=== PATIENT | female | born 1980 | race Caucasian/White ===

== ENCOUNTER 2016-11-25 14:31 | Inpatient (IN) | payer BC, MEDICAID ==
[~2016-11-25] VITALS: Ht 157.5 cm; Wt 94.5 kg
[~2016-11-25 14:31] MED LIST: COLACE 100100 MG/CAP PO; DOXYCYCLINE 10100 MG PO; MIRALAX238G PO; MOTRIN 600600 MG/TAB PO; PERCOCET 325 MG1 TA2 PO; PRENATABS RX1 TAB PO; PROFERRIN ES12 MG; VENTOLIN0.09 MG IH; XANAX 0.5MG0.5 MG PO
[2016-12-29] MEDS ORDERED: DICLEGIS (11:06)
[2017-01-03] VITALS (24 sets, daily range): BP systolic 116–156; BP diastolic 68–89; PULSE 90–109; TEMP 97.6–99.1
[2017-01-03] MEDS ORDERED: PEPCID 20MG TAB20 MG (14:47)
[2017-01-03 15:25] LABS: BASO % 0.2 % (0.0-2.0); EOS % 0.1 % (0-4.0); GRAN # 6.8 (1.4-6.5); GRAN % 72.9 % (42.2-75.2); LYMPH # 1.8 (1.2-3.4); LYMPH % 19.8 % (20.0-51.0); MEAN CELL VOLUME 87 fl (80.0-100.0); MEAN CORPUSCULAR HGB CONC 33 g/dl (33.0-37.0); MEAN PLATELET VOLUME 11.1 fl (7.4-10.4); MONO # 0.6 (0.1-0.6); MONO % 6.5 % (1.7-9.3); PLATELET COUNT 252 K/mm3 (130-400); RED BLOOD COUNT 3.94 M/mm3 (4.10-5.30); WHITE BLOOD COUNT 9.3 K/mm3 (4.8-10.8)
[2017-01-03 15:31] LABS: HEMATOCRIT 34.1 % (37.0-47.0); HEMOGLOBIN 11.4 g/dl (12.5-16.0); MEAN CORPUSCULAR HEMOGLOBIN 29 pg (27.0-31.0)
[2017-01-04] VITALS (9 sets, daily range): BP systolic 132–169; BP diastolic 71–89; PULSE 81–100; TEMP 97.7–98.5
[2017-01-04 01:49] LABS: COLLECTION METHOD CATHETER
[2017-01-04 01:59] LABS: MUCOUS Present /lpf; PH 5 (5-8); SQUAMOUS EPITHELIAL 0-2 /hpf; URINE APPEARANCE Clear; URINE BACTERIA None Seen /hpf; URINE BILIRUBIN Negative (NEGATIVE); URINE BLOOD 1+ (NEGATIVE); URINE COLOR Yellow; URINE GLUCOSE Negative (NEGATIVE); URINE KETONE 2+ (NEGATIVE); URINE LEUKOCYTE ESTERASE Negative (NEGATIVE); URINE PROTEIN(semi-quant) 1+ (NEGATIVE); URINE UROBILINOGEN Negative (NEGATIVE)
[2017-01-04 07:22] LABS: BASO % 0.3 % (0.0-2.0); EOS % 0.2 % (0-4.0); GRAN # 9.2 (1.4-6.5); GRAN % 80.5 % (42.2-75.2); LYMPH # 1.6 (1.2-3.4); LYMPH % 13.8 % (20.0-51.0); MEAN CELL VOLUME 88 fl (80.0-100.0); MEAN CORPUSCULAR HGB CONC 33 g/dl (33.0-37.0); MEAN PLATELET VOLUME 10.7 fl (7.4-10.4); MONO # 0.5 (0.1-0.6); MONO % 4.8 % (1.7-9.3); PLATELET COUNT 193 K/mm3 (130-400); RED BLOOD COUNT 3.19 M/mm3 (4.10-5.30); WHITE BLOOD COUNT 11.4 K/mm3 (4.8-10.8)
[2017-01-04 07:25] LABS: HEMATOCRIT 28.2 % (37.0-47.0); HEMOGLOBIN 9.2 g/dl (12.5-16.0); MEAN CORPUSCULAR HEMOGLOBIN 29 pg (27.0-31.0)
[2017-01-04 08:16] LABS: ADJUSTED CALCIUM 9.9 mg/dL (8.4-10.2); ALBUMIN 2.5 gm/dL (3.5-5.0); BILIRUBIN,TOTAL 0.4 mg/dL (0.0-1.0); CALCIUM 8.7 mg/dL (8.4-10.2); CREATININE, serum 0.79 mg/dL (0.52-1.25); TOTAL PROTEIN 5.3 gm/dL (6.4-8.2)
[2017-01-05 08:02] VITALS: BP 154/83; PULSE 94; TEMP 98.6
[2017-01-05] MEDS ORDERED: ADALAT CC60 MG PO (09:29)
[2017-01-05] MEDS ORDERED: IBU600 MG PO (09:29)
[2017-01-05] MEDS ORDERED: AMBIEN 5MG TABLE5 MG PO (09:31)
[2017-01-05] MEDS ORDERED: PERCOCET 325 MG1 TA2 PO (09:31)
[2017-01-05 12:03] VITALS: BP 137/88; PULSE 91
[2017-01-05 19:20] VITALS: BP 145/76; PULSE 86; TEMP 97.9
[2017-01-06] VITALS (8 sets, daily range): BP systolic 121–154; BP diastolic 68–82; PULSE 85–98; TEMP 97.8–98.3
[2017-01-07 07:15] VITALS: BP 147/86; PULSE 86; TEMP 98.6
[2017-01-07] MEDS ORDERED: LEXAPRO 5MG5 MG PO (09:14)
[2017-01-07] MEDS ORDERED: LEXAPRO 10MG10 MG PO (09:14)
[2017-01-07 10:43] LABS: BASO % 0.1 % (0.0-2.0); EOS % 0.1 % (0-4.0); GRAN # 7.7 (1.4-6.5); GRAN % 85.2 % (42.2-75.2); LYMPH % 11.3 % (20.0-51.0); MEAN CELL VOLUME 89 fl (80.0-100.0); MEAN CORPUSCULAR HGB CONC 33 g/dl (33.0-37.0); MEAN PLATELET VOLUME 10.4 fl (7.4-10.4); MONO # 0.3 (0.1-0.6); MONO % 2.9 % (1.7-9.3); PLATELET COUNT 355 K/mm3 (130-400); RED BLOOD COUNT 4.02 M/mm3 (4.10-5.30); WHITE BLOOD COUNT 9.1 K/mm3 (4.8-10.8)
[2017-01-07 10:44] LABS: HEMATOCRIT 35.7 % (37.0-47.0); HEMOGLOBIN 11.6 g/dl (12.5-16.0); MEAN CORPUSCULAR HEMOGLOBIN 29 pg (27.0-31.0)
[2017-01-07 10:59] LABS: ADJUSTED CALCIUM 9.4 mg/dL (8.4-10.2); ALBUMIN 3.6 gm/dL (3.5-5.0); BILIRUBIN,TOTAL 0.4 mg/dL (0.0-1.0); CALCIUM 9.1 mg/dL (8.4-10.2); CREATININE, serum 0.82 mg/dL (0.52-1.25); POTASSIUM 4.3 mmol/L (3.4-5.0)
[2017-01-07 11:05] VITALS: BP 150/85; PULSE 92; TEMP 98.4
[2017-01-07 11:34] LABS: COLLECTION METHOD CLEAN CATCH
[2017-01-07 11:44] LABS: MUCOUS Present /lpf; PH 6 (5-8); URINE APPEARANCE Clear; URINE BACTERIA None Seen /hpf; URINE BILIRUBIN Negative (NEGATIVE); URINE BLOOD 3+ (NEGATIVE); URINE COLOR Yellow; URINE GLUCOSE Negative (NEGATIVE); URINE KETONE 1+ (NEGATIVE); URINE LEUKOCYTE ESTERASE Negative (NEGATIVE); URINE PROTEIN(semi-quant) 2+ (NEGATIVE); URINE UROBILINOGEN Negative (NEGATIVE)
[2017-01-07 16:45] VITALS: BP 151/79; PULSE 88; TEMP 98.2
== END 2017-01-07 17:25 | disposition home or self-care (01) | DRG 766 ==
LOC: LDR 01-03 14:05 → OB 01-03 20:00 → LDR 01-15 14:31
PROVIDERS: Obstetrics & Gynecology
PROC: 10D00Z1 Extraction of Products of Conception, Low, Open Approach (ICD-10-PCS; principal; 2017-01-03)
DX: O11.4 Pre-existing hypertension with pre-eclampsia, complicating childbirth (principal); O10.92 Unspecified pre-existing hypertension complicating childbirth; O69.81X0 Labor and delivery complicated by cord around neck, without compression, not applicable or unspecified; O99.344 Other mental disorders complicating childbirth; F41.1 Generalized anxiety disorder; Z3A.38 38 weeks gestation of pregnancy; Z37.0 Single live birth
CPT/HCPCS: 90791-AI; J0360; J0690; J1885; J2250; J2270; J2370; J2405; J2590; J7120

== ENCOUNTER 2016-12-29 10:40 | Outpatient (CLI) | payer BC, MEDICAID ==
[2016-12-29] VITALS (10 sets, daily range): BP systolic 128–141; BP diastolic 70–91; PULSE 94–114; TEMP 98.5–98.9
[~2016-12-29] VITALS: Ht 157.5 cm; Wt 94.1 kg
[2016-12-29] MEDS ORDERED: DICLEGIS (11:06)
[2016-12-29 11:22] LABS: BASO % 0.3 % (0.0-2.0); EOS % 0.2 % (0-4.0); GRAN # 6.8 (1.4-6.5); GRAN % 74.1 % (42.2-75.2); LYMPH # 1.7 (1.2-3.4); LYMPH % 18.8 % (20.0-51.0); MEAN CELL VOLUME 88 fl (80.0-100.0); MEAN CORPUSCULAR HGB CONC 33 g/dl (33.0-37.0); MEAN PLATELET VOLUME 10.9 fl (7.4-10.4); MONO # 0.6 (0.1-0.6); MONO % 6.1 % (1.7-9.3); PLATELET COUNT 245 K/mm3 (130-400); RED BLOOD COUNT 3.85 M/mm3 (4.10-5.30); REDCELL DISTRIBUTION WIDTH-CV 13.8 % (11.5-14.5); WHITE BLOOD COUNT 9.2 K/mm3 (4.8-10.8)
[2016-12-29 11:23] LABS: HEMATOCRIT 33.9 % (37.0-47.0); HEMOGLOBIN 11.3 g/dl (12.5-16.0); MEAN CORPUSCULAR HEMOGLOBIN 29 pg (27.0-31.0)
[2016-12-29 11:31] LABS: PH 6 (5-8); URINE APPEARANCE Cloudy; URINE BACTERIA Rare /hpf; URINE BILIRUBIN Negative (NEGATIVE); URINE BLOOD Negative (NEGATIVE); URINE COLOR Yellow; URINE GLUCOSE Negative (NEGATIVE); URINE KETONE Negative (NEGATIVE); URINE RBC 0-2 /hpf; URINE UROBILINOGEN Negative (NEGATIVE)
[2016-12-29 11:32] LABS: ADJUSTED CALCIUM 9.6 mg/dL (8.4-10.2); ALBUMIN 3.5 gm/dL (3.5-5.0); BILIRUBIN,TOTAL 0.4 mg/dL (0.0-1.0); CALCIUM 9.2 mg/dL (8.4-10.2); CREATININE, serum 0.78 mg/dL (0.52-1.25); POTASSIUM 4.3 mmol/L (3.4-5.0); TOTAL PROTEIN 6.8 gm/dL (6.4-8.2)
== END 2016-12-29 13:50 | disposition home or self-care (01) ==
LOC: LDRO 10:40 → LDR 10:45 → LDRO 13:50
PROVIDERS: Obstetrics & Gynecology
DX: O99.413 Diseases of the circulatory system complicating pregnancy, third trimester (principal); R03.0 Elevated blood-pressure reading, without diagnosis of hypertension; Z3A.37 37 weeks gestation of pregnancy
CPT/HCPCS: OP

== ENCOUNTER → 2019-06-01 | Outpatient (CLI) | payer OTHER ==
[~2019-06-01] MED LIST changes: +ADALAT CC60 MG PO; +AMBIEN 5MG TABLE5 MG PO; +DICLEGIS; +IBU600 MG PO; +LEXAPRO 10MG10 MG PO; +LEXAPRO 5MG5 MG PO; +PEPCID 20MG TAB20 MG
== END ==
LOC: COL.RAD 13:42
DX: M50.223 Other cervical disc displacement at C6-C7 level (principal); M48.02 Spinal stenosis, cervical region; M25.78 Osteophyte, vertebrae

== ENCOUNTER → 2019-08-15 | Outpatient (CLI) | payer OTHER | LOC: MHCPAIN 11:00 | DX: M47.812 Spondylosis without myelopathy or radiculopathy, cervical region (principal); M54.2 Cervicalgia; G89.29 Other chronic pain | CPT/HCPCS: G0463 ==

== ENCOUNTER → 2020-02-20 | Outpatient (CLI) | payer OTHER | LOC: MC.RAD 11:20 | DX: Z12.31 Encounter for screening mammogram for malignant neoplasm of breast (principal) ==

== ENCOUNTER → 2020-02-25 | Outpatient (CLI) | payer OTHER | LOC: MC.RAD 08:15 | DX: N63.10 Unspecified lump in the right breast, unspecified quadrant (principal) ==

== ENCOUNTER 2020-05-04 03:25 | Emergency (ER) | payer OTHER ==
[~2020-05-04] VITALS: Ht 157.5 cm; Wt 75.9 kg
[2020-05-04 03:28] VITALS: TEMP 97.7
[2020-05-04 03:45] VITALS: BP 110/70; PULSE 78
== END 2020-05-04 03:45 | disposition home or self-care (01) ==
LOC: COL.ER 03:25
DX: O26.893 Other specified pregnancy related conditions, third trimester (principal); M54.2 Cervicalgia; O16.3 Unspecified maternal hypertension, third trimester; O99.513 Diseases of the respiratory system complicating pregnancy, third trimester; J18.9 Pneumonia, unspecified organism; O00.90 Unspecified ectopic pregnancy without intrauterine pregnancy; Z3A.00 Weeks of gestation of pregnancy not specified
CPT/HCPCS: J1100; J1885; J2360

== ENCOUNTER → 2020-05-06 | Outpatient (CLI) | payer OTHER | LOC: MHCPAIN 07:59 | DX: M47.812 Spondylosis without myelopathy or radiculopathy, cervical region (principal); M54.2 Cervicalgia; G89.29 Other chronic pain | CPT/HCPCS: G0463 ==

== ENCOUNTER → 2020-05-08 | Outpatient (CLI) | payer OTHER | LOC: MHCPAIN 10:26 | DX: M47.812 Spondylosis without myelopathy or radiculopathy, cervical region (principal); M54.12 Radiculopathy, cervical region | CPT/HCPCS: J1100; Q9967 ==

== ENCOUNTER → 2020-05-21 | Outpatient (CLI) | payer OTHER | LOC: MHCPAIN 11:09 | DX: M47.812 Spondylosis without myelopathy or radiculopathy, cervical region (principal); M54.2 Cervicalgia; G89.29 Other chronic pain | CPT/HCPCS: G0463 ==

== ENCOUNTER → 2021-02-20 | Outpatient (CLI) | payer OTHER | LOC: MC.RAD 11:03 | DX: Z12.31 Encounter for screening mammogram for malignant neoplasm of breast (principal) ==

== ENCOUNTER → 2023-03-29 | Outpatient (CLI) | payer OTHER ==
[2005-02-20 07:59] VITALS: BP 146/83; PULSE 72; TEMP 98
== END ==
LOC: MC.RAD 10:35
DX: Z12.31 Encounter for screening mammogram for malignant neoplasm of breast (principal)